=== PATIENT | female | born 1955 | race Caucasian/White ===

== ENCOUNTER → 2017-02-14 | Outpatient (CLI) | payer OTHER ==
[2017-02-14 12:18] LABS: Basophils # (A) 0.1 k/uL (0-0.2); Basophils % (A) 1 %; CH 31.4; CHCM 33.2; Eosinophils # (A) 0.1 k/uL (0-0.7); Eosinophils % (A) 1 %; HGB 14.6 gm/dL (11.4-16.0); Luc # (Auto) 0.14; Luc % (Auto) 2; Lymphocytes # (A) 2.1 k/uL (1.0-4.8); Lymphocytes % (A) 30 %; MCH 31.6 pg (25.0-35.0); MCHC 33.2 g/dL (31.0-37.0); Mean Platelet Volume 6.4; Monocytes # (A) 0.3 k/uL (0-1.0); Monocytes % (A) 4 %; Neutrophils # (A) 4.6 k/uL (1.3-7.7); Neutrophils % (A) 63 %; RBC 4.63 m/uL (3.80-5.40); RDW 13.4 % (11.5-15.5); WBC 7.3 k/uL (3.8-10.6); WBC (Perox) 6.88
--- NOTE | 2017-02-16 11:29 | MM ---
Reason for exam: screening (asymptomatic). Last mammogram was performed 11 years and 2 months ago. History: Cyst aspiration of the right breast. Physical Findings: A clinical breast exam by your physician is recommended on an annual basis and results should be correlated with mammographic findings. MG Screening Mammo w CAD Bilateral CC and MLO view(s) were taken. Prior study comparison: November 29, 2005, bilateral screening mammogram w/CAD. The breast tissue is extremely dense which could obscure a lesion on mammography. Finding: There are typically benign fine, diffuse/scattered calcifications in both breasts. No significant changes in finding since November 29, 2005. ASSESSMENT: Benign, BI-RAD 2 RECOMMENDATION: Routine screening mammogram of both breasts in 1 year.
== END | disposition home or self-care (01) ==
LOC: RADMAMWWP 11:10
PROVIDERS: ATTEND Family Medicine
DX: Z12.31 Encounter for screening mammogram for malignant neoplasm of breast (principal); I51.7 Cardiomegaly; R94.31 Abnormal electrocardiogram [ECG] [EKG]; G89.18 Other acute postprocedural pain
CPT/HCPCS: 85025; 93005; 36415; G0202

== ENCOUNTER → 2017-07-27 | Outpatient (CLI) | payer OTHER ==
--- NOTE | 2017-07-27 08:47 | US ---
EXAMINATION TYPE: US pelvic complete DATE OF EXAM: 07/27/2017 COMPARISON: NONE CLINICAL HISTORY: R10.9 ABD PAIN. Fever with kidney pain, tubal ligation TECHNIQUE: TA. Transabdominal sonographic images of the pelvis were acquired. TV not performed Date of LMP: 20yrs ago EXAM MEASUREMENTS: Uterus: 7.2 x 5.2 x 3.3 cm Endometrial Stripe: 0.5 cm Right Ovary: not seen Left Ovary: 2.5 x 1.9 x 1.8 cm 1. Uterus: Anteverted wnl 2. Endometrium: upper limit of normal for size 3. Right Ovary: not seen due to atrophy and overlying bowel gas 4. Left Ovary: wnl 5. Bilateral Adnexa: wnl 6. Posterior cul-de-sac: wnl Incidental finding of mobile debris within bladder. IMPRESSION: 1. Mobile debris within the urinary bladder is concerning for either infection or hemorrhage. Correla tion with with urinalysis is recommended. 2. Endometrium is within normal limits, however at upper limits of normal for a postmenopausal female . 3. Nonvisualization of the right ovary either due to overlying bowel gas or atrophy.
--- NOTE | 2017-07-27 08:49 | US ---
EXAMINATION TYPE: US abdomen complete DATE OF EXAM: 07/27/2017 COMPARISON: NONE CLINICAL HISTORY: R10.9 ABD PAIN. Fever and kidney pain EXAM MEASUREMENTS: Liver Length: 15.3 cm Gallbladder Wall: 0.2 cm CBD: 0.5 cm Spleen: 10.0 cm Right Kidney: 12.3 x 5.2 x 3.6 cm Left Kidney: 11.7 x 4.1 x 6.2 cm Pancreas: wnl Liver: wnl Gallbladder: wnl Evidence for sonographic Zee's sign: no CBD: wnl Spleen: wnl Right Kidney: wnl Left Kidney: wnl Upper IVC: wnl Abd Aorta: wnl The liver is homogenous. The intrahepatic portion of the IVC and proximal abdominal aorta are within normal limits. There is no evidence of cholelithiasis. Common bile duct is unremarkable. The visu alized portions of the pancreas are homogenous. The spleen is unremarkable. Kidneys are symmetric a nd free of hydronephrosis. No renal lesions are seen. IMPRESSION: 1. No sonographic evidence of hydronephrosis or nephrolithiasis. However, in this patient with debris seen within the urinary bladder on the pelvic ultrasound correlation with urinalysis is recommended. 2. No sonographic evidence of cholelithiasis or acute cholecystitis.
== END | disposition home or self-care (01) ==
LOC: RADUSWWP 07:22
PROVIDERS: ATTEND Family Medicine
DX: R10.9 Unspecified abdominal pain (principal)
CPT/HCPCS: 76700; 76856

== ENCOUNTER 2023-01-10 10:10 | Day surgery (SDC) | payer MEDICARE ==
[~2023-01-10 10:10] MED LIST: LACTATED RINGERS 1,000 ML IV SCH; MOXIFLOXACIN HCL 0.5% DROPS 3 ML BTL OP PRN; TETRACAINE 0.5% OPHTH (PF) DROPS 4 ML BTL OP PRN; TIMOLOL 0.5% OPHTH DROPS 5 ML BTL OP PRN
[2023-01-10] MEDS: CYCLOPENTOLATE 1% OPHTH SOLN 2 ML BTL OP PRN ×3 (10:45→11:00)
[2023-01-10 10:48] VITALS: TEMP 97.7
[2023-01-10] MEDS: PHENYLEPHRINE 2.5% OPHTH DRP 2ML OP PRN ×3 (10:48→11:10)
[2023-01-10] MEDS ORDERED: MIDAZOLAM 2 MG/2 ML VIAL ONE (11:50)
[2023-01-10] MEDS ORDERED: fentaNYL (PF) 50 MCG/ML 2 ML AMP ONE (11:50)
[2023-01-10] MEDS ORDERED: BALANCED SALT IRRIG SOLN COMB2 15 ML IRRIG.SOLN IRRIGATION ONE (12:00)
[2023-01-10] MEDS ORDERED: HYALURONATE SODIUM INTRAOCULAR 1 EACH SYRINGE (12MG/ML) INTRAOCULA ONE (12:00)
[2023-01-10] MEDS ORDERED: LIDOCAINE 1% (PF) 10MG/ML VIAL MISCELLANE ONE (12:01)
[2023-01-10] MEDS ORDERED: EPINEPHrine (PF) 0.3 ML in BALANCED SALT IRRIG SOLN COMB2 500 ML IRRIGATION ONE (12:02)
--- NOTE | 2023-01-10 12:22 | P.OP ---
Date of Procedure: 01/10/23 Preoperative Diagnosis: NS &CS Postoperative Diagnosis: same Procedure(s) Performed: PIOL, OD Implants: [id number] 20.50 Anesthesia: MAC Surgeon: Jimbo Higuera Pathology: none sent Condition: stable Disposition: same day Indications for Procedure: blurry vision Operative Findings: no complications
[2023-01-10] MEDS ORDERED: LACTATED RINGERS 1,000 ML IV ONE (12:25)
[2023-01-10 12:41] VITALS: BP 147/81; PULSE 70; RESP 15
--- NOTE | 2023-01-10 15:11 | OP ---
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 POSTOPERATIVE DIAGNOSES: Nuclear sclerosis and cortical sclerosis. OPERATION: Phacoemulsification of cataract and interocular lens implant, right eye. ESTIMATED BLOOD LOSS: Zero. SPECIMEN TAKEN: None. NARRATIVE: After obtaining the appropriate consent, the patient was brought to the operating room where the patient was placed under cardiac monitoring and prepped and draped in the usual sterile manner. At the 11 o'clock position, a 15-degree super sharp blade was used to create a paracentesis followed by instillation of 1% Xylocaine MPF 50:50 mix with BSS into the anterior chamber. This was followed by Amvisc viscoelastic to stabilize the anterior chamber. At the 9 o'clock position a self-sealing corneal flap incision was created using 2.8 mm shayla keratome. A cystotome was used to initiate a continuous tear capsulorrhexis which was completed with the Utrata forceps. A Binkhorst cannula was used to hydrodissect the lens nucleus followed by hydrodelineation. Phacoemulsification of the lens was performed utilizing phaco chop in 13.47 seconds at 11.9% power. The remaining cortical material was removed using the irrigation aspiration mode followed by additional 1% Xylocaine MPF into the anterior chamber followed by viscoelastic to stabilize the capsular bag. A [employer] MX60E, 20.5 diopters, posterior chamber lens was placed into the capsular bag without difficulty. The remaining viscoelastic material was removed from the anterior chamber with the irrigation/aspiration. Balanced salt solution was used to normalize the intraocular pressure. The incision was checked for watertight integrity. The patient then received 2 drops of 0.5% timolol followed by 2 drops Vigamox, was lightly patched and shielded in the usual manner. There were no complications from the procedure. The patient tolerated the procedure well and was returned to recovery in good condition. MMODL / IJN: [id number] /
== END 2023-01-10 12:54 | disposition home or self-care (01) ==
LOC: OR 10:10
PROVIDERS: ATTEND Ophthalmology
DX: H25.11 Age-related nuclear cataract, right eye (principal); H25.011 Cortical age-related cataract, right eye; Z96.1 Presence of intraocular lens; Z79.899 Other long term (current) drug therapy
CPT/HCPCS: 66984; C1780; J2250; J0171; J3010; J2001